=== PATIENT | female | born 1965 | race African-American/Black ===

== ENCOUNTER 2016-05-04 15:17 | Emergency (ER) | payer MEDICAID ==
[2016-05-04] MEDS ORDERED: CYCLOBENZAPRINE5 M1 PO (20:11)
[2016-05-04] MEDS ORDERED: NORCO 5-325 TA1 EACH PO (20:11)
[2016-09-05] MEDS ORDERED: PRINIVIL20 M1 PO (13:27)
[2016-09-05] MEDS ORDERED: REPAGLINIDE2 MG PO (13:28)
[2016-09-05] MEDS ORDERED: OMEPRAZOLE20 M3 PO (13:29)
[2016-09-05] MEDS ORDERED: NORVASC10 M2 PO (13:29)
[2016-09-05] MEDS ORDERED: GLUCOPHAGE1000 M1 PO (13:29)
[2016-09-05] MEDS ORDERED: ALEVE220 M4 PO (14:46)
[2016-10-09] MEDS ORDERED: ASPIRIN325 M3 PO (10:41)
[2016-10-09] MEDS ORDERED: ULTRAM50 M1 PO (10:42)
[2016-10-09] MEDS ORDERED: PERCOCET 5-3251 EACH PO (10:45)
[2016-10-09] MEDS ORDERED: MIRALAX17 G2 PO (10:47)
[2016-10-09] MEDS ORDERED: ZOFRAN4 M2 PO (10:48)
[2016-10-09] MEDS ORDERED: COLACE100 M1 PO (10:48)
== END 2016-05-04 20:40 ==
LOC: EDMED 15:17
DX: M54.6 Pain in thoracic spine (principal); E11.9 Type 2 diabetes mellitus without complications; I10 Essential (primary) hypertension; E03.9 Hypothyroidism, unspecified; F17.200 Nicotine dependence, unspecified, uncomplicated
CPT/HCPCS: J2270; J2360